=== PATIENT | female | born 1935 | race Caucasian/White ===

== ENCOUNTER 2017-08-21 18:54 | Inpatient (IN) ==
--- NOTE | 2017-08-21 19:07 | Emergency Department Note ---
Disposition Clinical Impression: NSTEMI (non-ST elevated myocardial infarction) Disposition: Admitted As Inpatient Condition: Fair General Adult HPI - General Chief complaint: ED Chest Pain Stated complaint: chest pain Source: patient, EMS Limitations: no limitations Nursing Notes Reviewed: Yes Vital Signs Reviewed: Yes - History of Present Illness HPI Narrative: 81-year-old female presents to the emergency department via EMS after concern for patient having altered mental status at home and complaining of chest pain. The patient has had myocardial infarctions in the past. Daughter at bedside, states, that the patient does not seem to be her normal mental state. Her last known well was over 3 hours ago. Pt Subjective Complaint: chest pain Onset (ago): unknown Location: chest Radiation: non-radiation Pain Severity: mild Pain Scale: 4 Quality: aching Consistency: constant Improves with: nothing Worsens with: nothing Associated symptoms: Reports: confusion Treatments Prior to Arrival: none - Related Data Home Medications Medication Instructions Recorded Confirmed Aspirin [Lo-Dose Aspirin EC] 81 mg PO DAILY 05/23/17 08/21/17 Clopidogrel [Plavix] 75 mg PO DAILY 05/23/17 08/21/17 Furosemide [Lasix] 40 mg PO DAILY 05/23/17 08/21/17 HYDROcodone/Acet 10/325 mg [[place] 1 tab PO BID PRN 05/23/17 08/21/17 10-325 mg] Linagliptin [Tradjenta] 5 mg PO DAILY 05/23/17 08/21/17 Lisinopril [Zestril] 20 mg PO DAILY 05/23/17 08/21/17 Simvastatin [Zocor] 20 mg PO HS 05/23/17 08/21/17 Cholecalciferol (Vitamin D3) 5,000 unit PO DAILY 08/21/17 08/21/17 [Vitamin D3] Ferrous Sulfate 325 mg PO DAILY 08/21/17 08/21/17 Previous Rx's Medication Instructions Recorded Amlodipine Besylate 10 mg PO DAILY #30 tablet 05/25/17 Allergies Allergy/AdvReac Type Severity Reaction Status Date / Time No Known Allergies Allergy Verified 02/25/17 16:14 Limitations: ROS unobtainable due to patients medical condition (confusion ) Constitutional: Denies: fever Cardiovascular: Reports: chest pain. Denies: palpitations Respiratory: Denies: cough, dyspnea Gastrointestinal: Denies: nausea, vomiting Past Medical History - Past Medical History Attestation: Yes The following information was validated with the patient. Medical history: Reports: non-contributory, arthritis, CHF, diabetes, hypertension, myocardial infarction Surgical history: Reports: angioplasty/stent Psychiatric history: Reports: no psych history - Social History Smoking Status: Former smoker Smokeless Tobacco Status: No Alcohol use: Reports: none Drug use: Reports: none Physical Exam CONSTITUTIONAL: Alert and oriented X3, well-nourished, well appearing, in no apparent distress, HEAD: Normocephalic; atraumatic. EYES: PERRL, no scleral icterus. NOSE: The nose is normal in appearance without rhinorrhea RESP: Normal chest excursion with respiration; breath sounds clear and equal bilaterally; no wheezes, rhonchi, or rales CARD: Regular rhythm, without murmurs, rub or gallop ABD: Non-distended; non-tender, soft,without rigidity, rebound or guarding SKIN: Normal for age and race; warm and dry; no apparent lesions Neuro: GCS 15, NIH 0, cranial nerves II through XII grossly intact, sensation intact in the upper and lower cells bilaterally, no pronator drift, normal finger to nose, strength 5 out of 5 in the upper and lower shoulders bilaterally - General Limitations: no limitations General appearance: alert, in no apparent distress - Head Head exam: atraumatic, normocephalic - Eye Eye exam: Present: normal appearance - ENT ENT exam: normal exam, normal oropharynx - Neck Neck exam: Present: normal inspection, full ROM - Chest Chest inspection: Present: tenderness - Respiratory Respiratory exam: Present: normal lung sounds bilaterally. Absent: respiratory distress - Cardiovascular Cardiovascular exam: Present: regular rate - Abdominal Exam Abdominal exam: Present: soft, Non-Tender - Extremities Exam Extremities exam: Present: normal inspection - Back Exam Back exam: Present: normal inspection - Neurological Exam Neurological exam: Present: alert. Absent: motor sensory deficit - Psychiatric Psychiatric exam: Present: normal affect, normal mood - Skin Skin exam: Present: warm, dry Course Vital Signs Temperature 98.6 F 08/21/17 18:55 Pulse Rate 75 08/21/17 18:55 Respiratory Rate 18 08/21/17 18:55 Blood Pressure 186/84 08/21/17 18:55 O2 Sat by Pulse Oximetry 99 08/21/17 18:55 Temperature 97.5 F L 08/21/17 22:37 Pulse Rate 61 08/21/17 22:37 Respiratory Rate 18 08/21/17 22:40 Blood Pressure 123/58 08/21/17 22:40 O2 Sat by Pulse Oximetry 95 08/21/17 22:37 Oxygen Delivery Oxygen Delivery Room Air Medical Decision Making - MDM Narrative Medical decision making narrative: 81-year-old female presents emergency Department with altered mental status and 3 out of 10 chest pain. This is mainly concerning for hemorrhagic stroke, versus delirium. Patient had an NIH of 0, and we do not call stroke protocol. We did obtain a CT of the head which was within normal limits and did not reveal any intracranial abnormality. Chest x-ray did not reveal any acute process. Echocardiogram did not reveal any ischemic ST changes. Troponin, however was elevated at 0.21. Patient was given aspirin here in the emergency department as well as sublingual nitroglycerin. Patient's chest pain and was treated 3 of 10 responded completely to nitroglycerin. Patient was started on low-dose heparin via ACS protocol. I spoke to the senior supply chain analyst on the phone and agreed with the plan. Patient's urinalysis is pending. Chest X-Ray 08/21/17 19:06 IMPRESSION: No acute cardiopulmonary disease. D/ / Noe Claros MD / Noe Claros MD Interpreting Provider: Noe Claros MD Head CT 08/21/17 19:06 IMPRESSION: No acute intracranial abnormality. D/ / Nika Horvath Cha, MD / Nika Horvath Cha, MD Interpreting Provider: Nika Horvath Cha, MD Vital Signs Temperature 98.6 F 08/21/17 18:55 Pulse Rate 75 08/21/17 18:55 Respiratory Rate 18 08/21/17 18:55 Blood Pressure 186/84 08/21/17 18:55 O2 Sat by Pulse Oximetry 99 08/21/17 18:55 Temperature 97.5 F L 08/21/17 22:37 Pulse Rate 61 08/21/17 22:37 Respiratory Rate 18 08/21/17 22:40 Blood Pressure 123/58 08/21/17 22:40 O2 Sat by Pulse Oximetry 95 08/21/17 22:37 Oxygen Delivery Oxygen Delivery Room Air - Lab Data Result diagrams: 08/21/17 20:09 08/21/17 20:09 Lab Results 08/21/17 08/21/17 08/21/17 Range/Units 20:09 20:09 20:09 WBC 10.3 (4.3-11.1) K/mcL RBC 3.86 (3.82-4.97) M/mcL Hgb 10.7 L (11.5-15.4) g/dL Hct 34.9 L (35.3-44.9) % MCV 90.4 (83.0-100.0) fL MCH 27.7 L (28.0-33.3) pg MCHC 30.7 L (31.6-35.5) g/dL RDW 13.3 (11.5-14.5) % Plt Count 213 (140-400) K/mcL MPV 10.7 (9.4-12.4) fL Immature Gran % 0.4 (0-4) % Seg Neutrophils % 73.5 % Lymphocytes % 17.0 % Monocytes % 7.1 % Eosinophils % 1.3 % Basophils % 0.7 % Neutrophils # 7.6 (1.6-8.9) K/mcL Lymphocytes # 1.8 (0.6-4.6) K/mcL Monocytes # 0.7 (0.0-1.3) K/mcL Eosinophils # 0.1 (0.0-0.6) K/mcL Basophils # 0.1 (0.0-0.2) K/mcL PT 11.2 (9.4-12.1) Seconds INR 1.0 APTT 33.4 (26.0-36.0) Seconds Sodium (136-145) mEq/L Potassium (3.5-4.5) mEq/L Chloride (98-109) mEq/L Carbon Dioxide (19-29) mEq/L BUN (7-20) mg/dL Creatinine (0.57-1.11) mg/dL Est GFR ( Amer) (> 60) Est GFR (Non-Af Amer) (> 60) BUN/Creatinine Ratio (6-26) Glucose (70-99) mg/dL Calculated Osmolality (280-300) Calcium (8.6-10.8) mg/dL Total Bilirubin (0.2-1.2) mg/dL Direct Bilirubin (0.0-0.5) mg/dL Indirect Bilirubin (0.0-1.2) mg/dL AST (5-34) Units/L ALT (0-55) Units/L Alkaline Phosphatase (38-126) Units/L Ammonia 19 (18-72) mcmol/L Troponin I (0-0.03) ng/mL Serum Total Protein (6.0-8.3) g/dL Albumin (3.5-5.0) g/dL Globulin (2.4-3.5) g/dL Albumin/Globulin Ratio (1.1-2.2) TSH (0.350-4.840) mcIU/mL Ethyl Alcohol (0-10) mg/dL 08/21/17 08/21/17 Range/Units 20:09 20:09 WBC (4.3-11.1) K/mcL RBC (3.82-4.97) M/mcL Hgb (11.5-15.4) g/dL Hct (35.3-44.9) % MCV (83.0-100.0) fL MCH (28.0-33.3) pg MCHC (31.6-35.5) g/dL RDW (11.5-14.5) % Plt Count (140-400) K/mcL MPV (9.4-12.4) fL Immature Gran % (0-4) % Seg Neutrophils % % Lymphocytes % % Monocytes % % Eosinophils % % Basophils % % Neutrophils # (1.6-8.9) K/mcL Lymphocytes # (0.6-4.6) K/mcL Monocytes # (0.0-1.3) K/mcL Eosinophils # (0.0-0.6) K/mcL Basophils # (0.0-0.2) K/mcL PT (9.4-12.1) Seconds INR APTT (26.0-36.0) Seconds Sodium 138 (136-145) mEq/L Potassium 4.6 H (3.5-4.5) mEq/L Chloride 104 (98-109) mEq/L Carbon Dioxide 19 (19-29) mEq/L BUN 30 H (7-20) mg/dL Creatinine 1.31 H (0.57-1.11) mg/dL Est GFR ( Amer) 47 L (> 60) Est GFR (Non-Af Amer) 39 L (> 60) BUN/Creatinine Ratio 23 (6-26) Glucose 130 H (70-99) mg/dL Calculated Osmolality 294 (280-300) Calcium 9.3 (8.6-10.8) mg/dL Total Bilirubin 1.0 (0.2-1.2) mg/dL Direct Bilirubin 0.3 (0.0-0.5) mg/dL Indirect Bilirubin 0.7 (0.0-1.2) mg/dL AST 19 (5-34) Units/L ALT 9 (0-55) Units/L Alkaline Phosphatase 87 (38-126) Units/L Ammonia (18-72) mcmol/L Troponin I 0.21 H* (0-0.03) ng/mL Serum Total Protein 7.3 (6.0-8.3) g/dL Albumin 3.6 (3.5-5.0) g/dL Globulin 3.7 H (2.4-3.5) g/dL Albumin/Globulin Ratio 1.0 L (1.1-2.2) TSH 1.583 (0.350-4.840) mcIU/mL Ethyl Alcohol < 10 (0-10) mg/dL - EKG Data EKG #1 EKG attestation: Yes I reviewed and interpreted this EKG. EKG results narrative: 19:03 Particular rate 74 bpm, ID interval 230, Q latter day 94, QT 382 ms, QTC 400 ms , normal axis. Sinus rhythm with first-degree AV block. Ventricular rate of 74 bpm. There are no ischemic ST changes noted on this electrocardiogram. Attestation Statement - Attestation Attestation: I examined this patient and my medical decision-making was reviewed with the Resident Physician. I agree with the documented findings, disposition and treatment plan as described except to the extent set forth below. 81-year-old female presents ED because of chest pain. She is a very poor historian and unable to describe onset, character or associated symptoms. The pain apparently began sometime today which time her daughter called the ambulance. No syncope. No diaphoresis. No dyspnea. She is also presenting with some mild confusion. No reported fever. Pleasant, elderly female in no apparent distress. She is talkative Morbidly obese Neck is supple with no JVD. Chest clear to auscultation bilateral. Tenderness to palpation along the parasternal margins bilaterally. No palpable crepitus. Lungs are clear to auscultation bilaterally. Abdomen soft nondistended nontender. Extremities with trace bilateral edema. EKG without acute changes. Have an Elevated Troponin and Will Be Admitted for Further Workup. The high probability of a clinically significant, sudden or life threatening deterioration of the [cardiopulmonary] system(s) required my full and direct attention, intervention and personal management. The aggregate critical care time was [15] minutes. This time is in addition to time spent performing reported procedures but includes the following: [x] Data Review and interpretation [x] Patient assessment and monitoring of vital signs [x] Documentation [x] Medication orders and management
[2017-08-21 20:24] LABS: Basophils # 0.1 K/mcL (0.0-0.2); Basophils % 0.7 %; Eosinophils # 0.1 K/mcL (0.0-0.6); Eosinophils % 1.3 %; Hematocrit 34.9 % (35.3-44.9); Hemoglobin 10.7 g/dL (11.5-15.4); Immature Granulocytes % 0.4 % (0-4); Lymphocytes # 1.8 K/mcL (0.6-4.6); Mean Corpuscular HGB Conc 30.7 g/dL (31.6-35.5); Mean Corpuscular Hemoglobin 27.7 pg (28.0-33.3); Mean Corpuscular Volume 90.4 fL (83.0-100.0); Mean Platelet Volume 10.7 fL (9.4-12.4); Monocytes # 0.7 K/mcL (0.0-1.3); Monocytes % 7.1 %; Neutrophils # 7.6 K/mcL (1.6-8.9); Platelet Count 213 K/mcL (140-400); Red Blood Count 3.86 M/mcL (3.82-4.97); Red Cell Distribution Width 13.3 % (11.5-14.5); Segmented Neutrophils % 73.5 %
[2017-08-21 20:38] LABS: Alanine Aminotransferase 9 Units/L (0-55); Albumin 3.6 g/dL (3.5-5.0); Alkaline Phosphatase 87 Units/L (38-126); Aspartate Amino Transferase 19 Units/L (5-34); BUN/Creatinine Ratio 23 (6-26); Bilirubin,Direct 0.3 mg/dL (0.0-0.5); Bilirubin,Indirect 0.7 mg/dL (0.0-1.2); Blood Urea Nitrogen 30 mg/dL (7-20); Calcium 9.3 mg/dL (8.6-10.8); Carbon Dioxide 19 mEq/L (19-29); Chloride 104 mEq/L (98-109); Ethanol < 10 mg/dL (0-10); Globulin 3.7 g/dL (2.4-3.5); Glucose 130 mg/dL (70-99); Osmolality,Calculated 294 (280-300); Potassium 4.6 mEq/L (3.5-4.5); Sodium 138 mEq/L (136-145); Total Protein 7.3 g/dL (6.0-8.3); eGFR For African Americans 47 (> 60); eGFR For Non-African Americans 39 (> 60)
[2017-08-21 20:51] LABS: Activated Partial Thrombo Time 33.4 Seconds (26.0-36.0)
[2017-08-21 20:59] LABS: Thyroid Stimulating Hormone 1.583 mcIU/mL (0.350-4.840)
[2017-08-21] MEDS ORDERED: Nitroglycerin 0.4 MG TAB.SUBL SL PRN (21:04)
[2017-08-21] MEDS ORDERED: Aspirin 81 MG TAB.CHEW PO ONE (21:05)
[2017-08-21] MEDS ORDERED: *HR* Heparin 5,000 UNIT/ML VIAL IVP PRN ×2 (21:06)
[2017-08-21] MEDS ORDERED: *HR* Heparin 5,000 UNIT/ML VIAL IVP ONE (21:06)
[2017-08-21 21:18] LABS: Prothrombin Time 11.2 Seconds (9.4-12.1)
[2017-08-21] MEDS: Heparin 25,000 UNIT/500 ML D5W 25,000 UNIT/500 ML MLS IVC SCH (21:52)
--- NOTE | 2017-08-22 04:30 | Internal Med History&Physical ---
Date of Encounter: 08/22/17 Time of Encounter: 04:28 Assessment and Plan (1) NSTEMI (non-ST elevated myocardial infarction) Current visit: Yes Status: Acute Upon is elevated. She is on IV heparin and nitroglycerin when necessary. Low- dose aspirin is started. She cannot take beta aldair because her heart rate is very low. Cardiology to see her. (2) Diabetes mellitus Current visit: Yes Status: Chronic Accu-Chek 4 times a day with sliding scale coverage Qualifiers: Diabetes mellitus type: type 2 Diabetes mellitus complication status: with kidney complications Diabetes mellitus complication detail: with chronic kidney disease Diabetes mellitus terminal carman insulin use: unspecified long-term insulin use status Chronic kidney disease stage: stage 3 (moderate) Qualified Code(s): E11.22 - Type 2 diabetes mellitus with diabetic chronic kidney disease; N18.3 - Chronic kidney disease, stage 3 (moderate); N18.3 - Chronic kidney disease, stage 3 (moderate) (3) Chronic kidney disease, stage 3 Current visit: No Status: Suspected Watch renal function closely Internal Medicine - H&P: HPI Chief complaint: Chest pain Admitted From: Home Plans for Post Hospital Care: Home History of present illness: Ms. Valencia is a 81 year old female is entered with chest pain and confusion. By the time I saw her her chest pain and confusion both have resolved. Apparently troponin are positive. She had prior history of coronary artery disease and had stents placed but she can remember to go. She does not have any syncope or lightheadedness or shortness of breath palpitations abdominal pain nausea vomiting diarrhea dysuria urgency frequency hematuria and hematochezia and hematemesis melena or any other symptoms. Chest pain was substernal radiating to her left shoulder and neck but it has resolved now. She could not tell me if nitroglycerin helped her Past Med Surg Social Fam HX - Past Medical History Medical history: non-contributory, arthritis, CHF, diabetes, hypertension, myocardial infarction Psychiatric history: no psych history - Past Surgical History Surgical History: angioplasty/stent - Social History Smoking Status: Former smoker Smokeless Tobacco Status: No Alcohol use: none Drug use: none - Family History Father Family Member Ethnicity: Non- Living Status: Hx Family Cardiac Disorders: Yes Sister Family Member Ethnicity: Non- Living Status: Hx Family Cancer: Yes (UNKnown type) Internal Medicine - H&P: Meds Aspirin [Lo-Dose Aspirin EC] 81 mg PO DAILY 05/23/17 [History] Clopidogrel [Plavix] 75 mg PO DAILY 05/23/17 [History] Furosemide [Lasix] 40 mg PO DAILY 05/23/17 [History] HYDROcodone/Acet 10/325 mg [[place] 10-325 mg] 1 tab PO BID PRN 05/23/17 [History] Linagliptin [Tradjenta] 5 mg PO DAILY 05/23/17 [History] Lisinopril [Zestril] 20 mg PO DAILY 05/23/17 [History] Simvastatin [Zocor] 20 mg PO HS 05/23/17 [History] Amlodipine Besylate 10 mg PO DAILY #30 tablet 05/25/17 [Rx] Cholecalciferol (Vitamin D3) [Vitamin D3] 5,000 unit PO DAILY 08/21/17 [History] Ferrous Sulfate 325 mg PO DAILY 08/21/17 [History] 3 Allergy/AdvReac Type Severity Reaction Status Date / Time No Known Allergies Allergy Verified 02/25/17 16:14 All Systems PM: A 10-system review of systems was performed and is negative for pertinent findings except as documented above in the HPI. - Constitutional Constitutional: no chills, no fever(s), no night sweats - EENT Eyes: no change in vision, no discharge, no pain, no photophobia Ears: no ear discharge, no ear pain, no tinnitus Nose, mouth and throat: no dysphagia, no nasal discharge, no neck pain, no sore throat - Cardiovascular Cardiovascular ROS IM: no chest pain, no diaphoresis, no dyspnea, no lightheadedness, no palpitations, no syncope - Respiratory Respiratory: no cough, no dyspnea, no wheezing, no excessive phlegm production - Gastrointestinal Gastrointestinal: no abdominal pain, no diarrhea, no hematemesis, no hematochezia, no melena, no nausea, no vomiting - Genitourinary Genitourinary: no change in urinary stream, no dysuria, no flank pain, no hematuria - Musculoskeletal Musculoskeletal ROS IM: no numbness, no tingling - Integumentary Integumentary IM: no rash, no unusual bruising - Neurological Neurological ROS: no confusion, no convulsions, no focal weakness, no numbness, no tingling, no tremor(s) - Hematologic/Lymphatic Hematologic/Lymphatic: no easy bruising - Constitutional Vitals: Temp Pulse Resp BP Pulse Ox 97.7 F 60 16 143/78 96 08/22/17 03:31 08/22/17 03:31 08/22/17 03:31 08/22/17 03:31 08/22/17 03:31 - Head Head exam: Present: atraumatic, normocephalic - Eye Eye exam: Present: PERRL, conjuntiva pink, sclera anicteric Pupils: Present: PERRL - Neck Neck exam general surgery: Present: supple, trachea midline. Absent: lymphadenopathy - Respiratory Respiratory exam: Present: CTAB. Absent: accessory muscle use, rales, rhonchi, wheezes - Cardiovascular Cardiovascular exam: Present: RRR, +S1, +S2. Absent: diastolic murmur, gallop, rubs, systolic murmur - GI/Abdominal GI/Abdominal exam: Present: normal bowel sounds, soft, no peritoneal signs. Absent: distended, tenderness - Extremities Exam Extremities exam: Present: warm, radial pulses palpable and symmetrical. Absent : calf tenderness, cyanotic, pedal edema - Neurological Exam Neurological exam: Present: CN II-XII intact, oriented X3, no focal deficits. Absent: pronater drift, facial droop, speech deficit - Skin Skin exam: Present: dry, intact Internal Med - H&P Results - Labs CBC & Chem 7: 08/21/17 20:09 08/21/17 20:09 Labs: Cardiac Enzymes 08/22/17 Range/Units 02:33 Troponin I 0.26 H* (0-0.03) ng/mL
[2017-08-22] MEDS ORDERED: *HR* HYDROcodone/Acet 10/325 mg TABLET PO PRN ×2 (04:31→11:35)
[2017-08-22] MEDS ORDERED: *HR* Dextrose 50 % in Water (Syg) 50 ML SYRINGE IVP PRN (04:32)
[2017-08-22] MEDS ORDERED: D5% in Water 1,000 ML IVC PRN (04:32)
[2017-08-22] MEDS ORDERED: Dextrose Gel 15 GM PO PRN ×2 (04:32)
[2017-08-22] MEDS ORDERED: Naloxone 0.4 MG/ML INJ IVP PRN (04:33)
[2017-08-22 07:57] LABS: Bilirubin,Urine Negative (Negative); Blood,Urine Negative (Negative); Clarity,Urine Clear (Clear); Color,Urine Yellow (Yellow); Glucose,Urine (UA) Normal (Normal); Ketones,Urine Negative (Negative); Leukocyte Esterase,Urine Negative (Negative); Nitrite,Urine Negative (Negative); Protein,Urine Negative (Neg-Trace); Urobilinogen,Urine Normal (Normal)
[2017-08-22] MEDS: Aspirin Enteric Coated 81 MG Tablet PO SCH (08:51)
[2017-08-22] MEDS: Lisinopril 20 MG TABLET PO SCH (08:51)
[2017-08-22] MEDS: Insulin LISPRO 300 UNITS/3 ML VIAL SQ SCH ×5 (08:51→16:43)
[2017-08-22] MEDS: amLODIPine 5 MG TABLET PO SCH (08:51)
[2017-08-22] MEDS: Cholecalciferol (D-3) 1,000 UNIT TABLET PO SCH (08:51)
[2017-08-22] MEDS: Furosemide 40 MG TABLET PO SCH (08:52)
--- NOTE | 2017-08-22 10:00 | Cardiology Consult Note ---
Addendum entered and electronically signed by Eduard Briseno CNP 08/22/17 11:47 : Discussed [facility] R/B/A again with patient and daughter who is now at bedside. EKG changes discussed. Patient agrees with [facility]. We will possibly do later today after 4 hours of NPO. Keep NPO. She is chest pain free. Addendum entered and electronically signed by Eduard Briseno CNP 08/22/17 11:00 : Dr. Decker brought EKG ordered today to our attention. There are new t wave inversions. Reviewed EKG findings with Dr. Elizabeth, concerning for ischemia in LAD territory. No ST elevation noted. Recommend [facility]. Will keep NPO after midnight. Original Note: <Eduard Briseno - Last Filed: 08/22/17 10:21> Date of Encounter: 08/22/17 Time of Encounter: 09:42 Assessment and Plan (1) NSTEMI (non-ST elevated myocardial infarction) Current Visit: Yes Status: Acute Troponin 0.21, 0.26. C/o chest pain just like previous MN 10 years ago. EKG ordered, not available for our view. EKG showed SR with no EKG changes per documentaion in ED. I discussed C R/B/A vs medical management. Patient prefers medical management unless she has recurrent symptoms. Check TTE. Asa, plavix, and statin. Add imdur. No bb due to bradycardia seen 2016. Heparin gtt for 24-48hrs. (2) CAD (coronary artery disease) Current Visit: No Status: Acute H/o remote PCI. Last MN 10 years ago. Stress test 05/2017 negative for ischemia. Continue medical management as described above. No bb due to bradycardia seen earlier this year. Tele shows avg HR 65 bpm. NSR with PAc. HR as low as 40 seen during nocturnal hours. Qualifiers: Coronary Disease-Associated Artery/Lesion type: hoh artery [place] vs. transplanted heart: hoh heart Associated angina: angina presence unspecified Qualified Code(s): I25.10 - Atherosclerotic heart disease of hoh coronary artery without angina pectoris Discussion w patient/family: The assessment and plan as outlined above was discussed with the patient and/or family members who expressed understanding and agreement. All questions were answered. Thank you for involving us in the care of your patient. Please call with any questions. History of Present Illness Consult date: 08/22/17 Requesting physician: Diane Deutsch Consult reason: Chest pain/NSTEMI Chief complaint: Chest pain History of present illness: Ms. Valencia is a 81 year old female with a history of CAD s/p remote PCI, HTN , HLD, DM type II, bradycardia, and obesity presents with increasing chest pain and confusion from home. She reports lying in bed when her chest discomfort started. The pain was midsternal radiating to her shoulders. The pain was associated with dizziness. She rates it a 10/10 chest pressure on the pain scale. She took a hydrocodone. The pain resolved after about an hour. Her daughter called EMS. Daughter reported patient was not acting right and appeared confused. Confusion has resolved. Patient reports pain is like previous MN 10 years ago. She had intermittent chest pain but not as severe. Past Med Surg Social Fam HX - Past Medical History Attestation: Yes The following information was validated with the patient. Medical history: non-contributory, arthritis, CHF, diabetes, hypertension, myocardial infarction Psychiatric history: no psych history - Past Surgical History Surgical History: angioplasty/stent - Social History Smoking Status: Former smoker Smokeless Tobacco Status: No Alcohol use: none Drug use: none - Family History Father Family Member Ethnicity: Non- Living Status: Hx Family Cardiac Disorders: Yes Sister Family Member Ethnicity: Non- Living Status: Hx Family Cancer: Yes (UNKnown type) Medications and Allergies Aspirin [Lo-Dose Aspirin EC] 81 mg PO DAILY 05/23/17 [History] Clopidogrel [Plavix] 75 mg PO DAILY 05/23/17 [History] Furosemide [Lasix] 40 mg PO DAILY 05/23/17 [History] HYDROcodone/Acet 10/325 mg [[place] 10-325 mg] 1 tab PO BID PRN 05/23/17 [History] Linagliptin [Tradjenta] 5 mg PO DAILY 05/23/17 [History] Lisinopril [Zestril] 20 mg PO DAILY 05/23/17 [History] Simvastatin [Zocor] 20 mg PO HS 05/23/17 [History] Amlodipine Besylate 10 mg PO DAILY #30 tablet 05/25/17 [Rx] Cholecalciferol (Vitamin D3) [Vitamin D3] 5,000 unit PO DAILY 08/21/17 [History] Ferrous Sulfate 325 mg PO DAILY 08/21/17 [History] 3 Allergy/AdvReac Type Severity Reaction Status Date / Time No Known Allergies Allergy Verified 02/25/17 16:14 All Systems Review: A 10-system review of systems was performed and is negative for pertinent findings except as documented above in the HPI. Physical Examination Vital Signs, Last 4 Hours Temp Pulse Resp BP Pulse Ox 08/22/17 08:59 96 08/22/17 08:33 97.8 F 59 18 153/72 96 General: Conversant, No Apparent Distress HEENT: Atraumatic, Normocephaly, Mucus Membranes Moist Neck: No JVD, Normal carotid pulses Cardiac: Reg Rate and Rhythm, Normal S1 and S2, No Murmur Lungs: Normal Breath Sounds, No Wheeze, Rales, Rhonchi Neuro: Alert and responsive, No focal deficits noted Abdomen: Soft, Non-Tender Skin: No rashes noted on visualized skin Musculoskeletal: No Chest Wall Tenderness Extremities: No Clubbing, No Cyanosis, No Edema, Normal Pulses Results 08/21/17 20:09 08/21/17 20:09 - Imaging and Cardiology Stress Test: report reviewed - EKG Interpretation EKG results cardiology: personally reviewed Consult Discharge Plan - Plan Referrals: Nav Urias DO [Primary Care Provider] - <Shanon Elizabeth - Last Filed: 08/22/17 12:17> Date of Encounter: 08/22/17 - Attending Attestation I have personally performed a face to face evaluation on this patient. I have reviewed and agree with the care plan. History and Exam by me shows: 81 YOF with h/o CAD presents after recent negative stress test with recurrent CP. Has a h/o of PCI in the past with mildly elevated troponins and new changes on EKG suggestive of LAD ischemia. C today and continue ACS meds. Assessment and Plan Discussion w patient/family: The assessment and plan as outlined above was discussed with the patient and/or family members who expressed understanding and agreement. All questions were answered. Thank you for involving us in the care of your patient. Please call with any questions. History of Present Illness History of present illness: Ms. Valencia is a 81 year old female All Systems Review: A 10-system review of systems was performed and is negative for pertinent findings except as documented above in the HPI. Physical Examination Vital Signs, Last 4 Hours Temp Pulse Resp BP Pulse Ox 08/22/17 11:17 97.8 F 85 17 103/61 90 08/22/17 08:59 96 08/22/17 08:33 97.8 F 59 18 153/72 96 Results 08/22/17 09:52 08/22/17 09:52 Lab Results 08/22/17 08/22/17 08/22/17 09:52 09:52 09:52 WBC 8.5 Hgb 10.5 L Hct 33.3 L Plt Count 205 APTT 66.4 H Sodium 139 Potassium 4.2 Chloride 105 Carbon Dioxide 27 BUN 25 H Creatinine 1.35 H Glucose 220 H Calcium 9.7
[2017-08-22 10:20] LABS: Basophils # 0.1 K/mcL (0.0-0.2); Basophils % 0.7 %; Eosinophils # 0.1 K/mcL (0.0-0.6); Eosinophils % 1.6 %; Hematocrit 33.3 % (35.3-44.9); Hemoglobin 10.5 g/dL (11.5-15.4); Immature Granulocytes % 0.4 % (0-4); Lymphocytes # 2.2 K/mcL (0.6-4.6); Lymphocytes % 26.2 %; Mean Corpuscular HGB Conc 31.5 g/dL (31.6-35.5); Mean Corpuscular Hemoglobin 28.2 pg (28.0-33.3); Mean Corpuscular Volume 89.5 fL (83.0-100.0); Mean Platelet Volume 10.9 fL (9.4-12.4); Monocytes # 0.5 K/mcL (0.0-1.3); Monocytes % 5.5 %; Neutrophils # 5.6 K/mcL (1.6-8.9); Platelet Count 205 K/mcL (140-400); Red Blood Count 3.72 M/mcL (3.82-4.97); Red Cell Distribution Width 13.2 % (11.5-14.5); Segmented Neutrophils % 65.6 %
[2017-08-22 10:30] LABS: Calcium 9.7 mg/dL (8.6-10.8); Potassium 4.2 mEq/L (3.5-4.5)
--- NOTE | 2017-08-22 10:51 | Event Note ---
<Kamran Hunt - Last Filed: 08/22/17 10:38> Date of Encounter: 08/22/17 Time of Encounter: 10:38 Patient was admitted early this morning. She is seen and examined at bedside. She is chest pain-free at this time. She denies shortness of breath, nausea, vomiting. Physical exam: Gen: Alert and oriented 3 Heart: Regular rate and rhythm, no murmurs, rubs, gallops Lungs: Clear to auscultation bilaterally, no rales, rhonchi, wheezes Abdomen: Soft, nontender, nondistended Assessment and plan: NSTEMI - troponin 0.21, 0.26, repeat pending. Patient is currently on a heparin drip. On aspirin, statin. Not on a beta aldair due to history of bradycardia. EKG shows new T-wave inversion. Cardiology has been consulted. CKD stage III - creatinine appears to be baseline. Good Urine output. Continue to monitor. Type 2 diabetes - Blood sugars elevated this morning. Hold home antihyperglycemic agents. Will add prandial insulin at low dose given that the patient is insulin naive. Continue sliding scale coverage. Adjust based on insulin usage and blood sugar readings. Most recent A1c in May was 5.8, recheck in the morning. <Tigre Henderson - Last Filed: 08/23/17 08:00> Date of Encounter: 08/22/17 I conducted a face to face diagnostic evaluation of this patient and my medical decision-making was reviewed with the Resident Physician, Dr. Kamran Hunt. I agree with the documented findings, disposition and treatment plan.
[2017-08-22] MEDS ORDERED: Acetaminophen 325 MG TABLET PO PRN (11:34)
[2017-08-22] MEDS ORDERED: Heparin 1,000 UNITS/500 mL NS 500 ML ONE (14:38)
[2017-08-22] MEDS ORDERED: *HR* Heparin 10,000 UNIT/10 ML VIAL ONE (14:38)
[2017-08-22] MEDS ORDERED: 0.9 % Sodium Chloride 1,000 ML ONE ×2 (14:38→15:35)
[2017-08-22] MEDS ORDERED: Nitroglycerin 1,000 MCG/10 ML VIAL IV ONE (14:38)
[2017-08-22] MEDS ORDERED: *HR* Midazolam HCl 2 MG/2 ML VIAL ONE (15:38)
--- NOTE | 2017-08-22 16:17 | Pre-Sedation Evaluation ---
Pre-sedation evaluation - Pre-sedation checklist Date of procedure: 08/22/17 Procedure: left heart cath Recent Vitals: Last Vital Signs Temp 97.8 F 08/22/17 11:17 Pulse 85 08/22/17 11:17 Resp 17 08/22/17 11:17 BP 103/61 08/22/17 11:17 Pulse Ox 90 08/22/17 11:17 H&P (including ROS) documented in medical record: Yes Previous reaction to sedatives/anesthetics: No Dietary Status: Clear fluids after Midnight Dentition: No loose teeth or bridges Possible difficult airway: No ASA Classification *see protocol: CLASS III-Severe systemic disease Plan of Care: Pt appropriate candidate for procedure/moderate/conscious sedation , Risks/benefits of procedure/sedation discussed w/ patient/family, If not NPO; Risk of intake outweiged by necessity to perform procedure
[2017-08-22] MEDS: 0.9 % Sodium Chloride 1,000 ML IVC SCH (16:48)
--- NOTE | 2017-08-22 19:22 | Electrocardiograph Report ---
[address] [place] [address] Test Date: 2017-08-21 Pat Name: Crystal Valencia Department: 104 Room: 2A26 Gender: F Night Shift: : 1935 Requested By: Bharathi Englsih Order Number: [id number] Reading MD: David Rico DO Measurements Intervals [place] Rate: 74 P: -38 [place]: 230 QRS: 86 QRSD: 94 T: 26 QT: 382 QTc: 409 Interpretive Statements SINUS RHYTHM WITH FIRST DEGREE AV BLOCK POSSIBLE LATERAL MYOCARDIAL INFARCTION [30 ms Q WAVE IN I/aVL/V5/V6], OF INDETERMINATE AGE Electronically Signed On 08-22-2017 19:20:48 EST by David Rico DO
[2017-08-22] MEDS: Isosorbide MONOnitrate (24 HR) 30 MG TAB.ER.24H PO SCH (20:30)
[2017-08-22] MEDS ORDERED: Insulin LISPRO 300 UNITS/3 ML VIAL SQ SCH (21:00)
[2017-08-23 06:04] LABS: Basophils % 0.4 %; Eosinophils # 0.3 K/mcL (0.0-0.6); Eosinophils % 2.8 %; Hematocrit 30.4 % (35.3-44.9); Hemoglobin 9.6 g/dL (11.5-15.4); Immature Granulocytes % 0.4 % (0-4); Lymphocytes # 2.8 K/mcL (0.6-4.6); Lymphocytes % 30.6 %; Mean Corpuscular HGB Conc 31.6 g/dL (31.6-35.5); Mean Corpuscular Hemoglobin 28.1 pg (28.0-33.3); Mean Corpuscular Volume 88.9 fL (83.0-100.0); Mean Platelet Volume 10.8 fL (9.4-12.4); Monocytes # 0.8 K/mcL (0.0-1.3); Monocytes % 9.3 %; Neutrophils # 5.1 K/mcL (1.6-8.9); Platelet Count 210 K/mcL (140-400); Red Blood Count 3.42 M/mcL (3.82-4.97); Red Cell Distribution Width 13.3 % (11.5-14.5); Segmented Neutrophils % 56.5 %
[2017-08-23 06:09] LABS: Hemoglobin A1C 5.9 %
[2017-08-23 06:23] LABS: Calcium 8.7 mg/dL (8.6-10.8); Magnesium 1.4 mg/dL (1.6-2.6); Potassium 4.3 mEq/L (3.5-4.5)
--- NOTE | 2017-08-23 07:51 | Event Note ---
Date of Encounter: 08/23/17 Time of Encounter: 07:45 - Cardiology Event Note [facility] report reviewed with 80% distal RCA diffusely diseased, no intervention performed. Otherwise, moderate non-obstructive CAD. TTE with LVEf 65%. Cardiology will sign off and will follow in outpatient setting. Follow up set.
[2017-08-23] MEDS: Isosorbide MONOnitrate (24 HR) 30 MG TAB.ER.24H PO SCH (08:32)
[2017-08-23] MEDS: Cholecalciferol (D-3) 1,000 UNIT TABLET PO SCH (08:32)
[2017-08-23] MEDS: amLODIPine 5 MG TABLET PO SCH (08:32)
[2017-08-23] MEDS: Furosemide 40 MG TABLET PO SCH (08:32)
[2017-08-23] MEDS: Aspirin Enteric Coated 81 MG Tablet PO SCH (08:32)
[2017-08-23] MEDS: Lisinopril 20 MG TABLET PO SCH (08:32)
[2017-08-23] MEDS: Insulin LISPRO 300 UNITS/3 ML VIAL SQ SCH ×2 (08:33→08:34)
[2017-08-23] MEDS: Heparin 25,000 UNIT/500 ML D5W 25,000 UNIT/500 ML MLS IVC SCH (08:42)
[2017-08-23] MEDS: 0.9 % Sodium Chloride 1,000 ML IVC SCH (08:43)
--- NOTE | 2017-08-23 09:06 | Discharge Summary ---
Addendum entered and electronically signed by Kamran Hunt DO 08/23/17 09:53: Will add Imdur 30 mg daily to the patient's medications. Original Note: <Kamran Hunt - Last Filed: 08/23/17 09:15> Date of Encounter: 08/23/17 Time of Encounter: 09:03 - Discharge Diagnosis (1) Chest pain Priority: Primary Status: Resolved Qualifiers: Chest pain type: other chest pain Qualified Code(s): R07.89 - Other chest pain; R07.8 - Other chest pain (2) CAD (coronary artery disease) Priority: Primary Status: Chronic Qualifiers: Coronary Disease-Associated Artery/Lesion type: wiyot artery [place] vs. transplanted heart: wiyot heart Associated angina: angina presence unspecified Qualified Code(s): I25.10 - Atherosclerotic heart disease of wiyot coronary artery without angina pectoris (3) Diabetes mellitus Priority: Secondary Status: Chronic Qualifiers: Diabetes mellitus type: type 2 Diabetes mellitus complication status: with kidney complications Diabetes mellitus complication detail: with chronic kidney disease Diabetes mellitus fci insulin use: unspecified fci insulin use status Chronic kidney disease stage: stage 3 (moderate) Qualified Code(s): E11.22 - Type 2 diabetes mellitus with diabetic chronic kidney disease; N18.3 - Chronic kidney disease, stage 3 (moderate); N18.3 - Chronic kidney disease, stage 3 (moderate) (4) Chronic kidney disease, stage 3 Priority: Secondary Status: Chronic (5) NSTEMI (non-ST elevated myocardial infarction) Priority: Secondary Status: Ruled-out - Discharge Medications Prescriptions: Isosorbide MONOnitrate (24 HR) [Imdur] 30 mg PO DAILY #30 tab.er.24h Home Medications: Aspirin [Lo-Dose Aspirin EC] 81 mg PO DAILY 05/23/17 [History] Clopidogrel [Plavix] 75 mg PO DAILY 05/23/17 [History] Furosemide [Lasix] 40 mg PO DAILY 05/23/17 [History] HYDROcodone/Acet 10/325 mg [[place] 10-325 mg] 1 tab PO BID PRN 05/23/17 [History] Linagliptin [Tradjenta] 5 mg PO DAILY 05/23/17 [History] Lisinopril [Zestril] 20 mg PO DAILY 05/23/17 [History] Simvastatin [Zocor] 20 mg PO HS 05/23/17 [History] Amlodipine Besylate 10 mg PO DAILY #30 tablet 05/25/17 [Rx] Cholecalciferol (Vitamin D3) [Vitamin D3] 5,000 unit PO DAILY 08/21/17 [History] Ferrous Sulfate 325 mg PO DAILY 08/21/17 [History] Isosorbide MONOnitrate (24 HR) [Imdur] 30 mg PO DAILY #30 tab.er.24h 08/23/17 [ Rx] Allergies/Adverse Reactions: 3 Allergy/AdvReac Type Severity Reaction Status Date / Time No Known Allergies Allergy Verified 02/25/17 16:14 Procedures/tests Complete & Pending: Procedures Performed prior 72 hours Category Date Time Status CL Cardiac Catheterization [CL] Routine Rn Gastroenterology 08/22/17 11:46 Completed EKG [ECG 12 lead ECG] [ECG] Stat Y 08/22/17 10:24 Completed EV limited echocardiogram Routine Y 08/22/17 10:26 Completed Date of admission: 08/22/17 04:33 Primary care physician: Nav Urias Consults: 08/23/17 07:57 Consult to Cardiac Rehabilitation-Phase1 [CONS] Routine Comment: Reason for Consult: NSTEMI Call Completed: No Discharging clinician: Kamran Hunt Anticipated date of discharge: 08/23/17 - Patient Status Disposition: Home, Self-Care Condition: Fair Functional capacity at discharge: independent ambulation Overall status at discharge: patient is back to baseline - Discharge Instructions Instructions: Bradycardia (DC), Dyspnea (GEN) Follow Up With: Saurabh Ramos DO [Resident] - 08/30/17 11:00 am (1 week) Arelis Villalta HISTORY CARD CLERK [Advanced Practice Nurse] - (3-4 weeks, Cardiology started process of making follow up. Office will call you with an appointment date and time ) Additional Instructions: Please follow up with your primary care physician in one week. Please resume your home medications. Please follow-up with cardiology as scheduled. Please return for any new or worsening symptoms. - Diet and Activity Activity: increase activity as tolerated Diet: diabetic diet, low salt diet Interval History: Patient seen and examined at bedside. Patient states that she feels good this morning. She denies any chest pain overnight. She denies shortness of breath, cough. She has been up walking around without difficulty. Hospital course: Ms. Valencia is a 81 year old female with history of coronary artery disease, type 2 diabetes who presented with chest pain. Her chest pain was substernal and exacerbated by activity. She stated this pain felt similar to her previous episodes of angina that required stent placement. EKG was performed and showed new T-wave inversions. She also had elevation in her troponin. She was placed on heparin drip for non-ST elevation [place]. Cardiology was consulted and the patient underwent left heart catheterization that showed nonobstructive coronary disease. Cardiology had signed off. The patient has been chest pain- free throughout her entire stay. The patient will be discharged home in stable condition. Of note the patient will not be discharged with a beta aldair due to her history of bradycardia. - Time Spent with Patient Total time spent providing and/or coordinating discharge services: Greater than 30 minutes - Constitutional Vitals: Temp Pulse Resp BP Pulse Ox 98.2 F 68 17 105/58 95 08/23/17 07:16 08/23/17 07:16 08/23/17 07:16 08/23/17 07:16 08/23/17 08:44 General appearance: Present: A&O X 3, pleasant, no acute distress - Respiratory Respiratory exam: Present: CTAB. Absent: rales, rhonchi, wheezes - Cardiovascular Cardiovascular exam: Present: RRR. Absent: gallop, rubs, systolic murmur - GI/Abdominal GI/Abdominal exam: Present: normal bowel sounds, soft. Absent: distended, tenderness - Extremities Exam Extremities exam: Present: warm. Absent: pedal edema, tenderness - Neurological Exam Neurological exam: Present: alert, CN II-XII intact, oriented X3, no focal deficits <Tigre Henderson - Last Filed: 08/23/17 18:28> Date of Encounter: 08/23/17 Procedures/tests Complete & Pending: Procedures Performed prior 72 hours Category Date Time Status CL Cardiac Catheterization [CL] Routine Rn Gastroenterology 08/22/17 11:46 Completed EKG [ECG 12 lead ECG] [ECG] Stat Y 08/22/17 10:24 Completed EV limited echocardiogram Routine Y 08/22/17 10:26 Completed Date of admission: 08/22/17 04:33 Primary care physician: Nav Urias Consults: 08/23/17 07:57 Consult to Cardiac Rehabilitation-Phase1 [CONS] Routine Comment: Reason for Consult: NSTEMI Call Completed: No Hospital course: Ms. Valencia is a 81 year old female - Time Spent with Patient Total time spent providing and/or coordinating discharge services: - Constitutional Vitals: Temp Pulse Resp BP Pulse Ox 98.2 F 68 17 105/58 95 08/23/17 07:16 08/23/17 07:16 08/23/17 07:16 08/23/17 07:16 08/23/17 08:44 - Attending Attestation I conducted a face to face diagnostic evaluation of this patient and my medical decision-making was reviewed with the Resident Physician, Dr. Kamran Hunt. I agree with the documented findings, disposition and treatment plan as described except to the extent set forth below: Patient reports 0/10 chest pain today. Denies shortness of breath. Heart exam reveals regular S1-S2. Cardiac catheterization report reveals distal diffuse RCA 80% stenosis not amenable to stenting. Recommendation to continue medical management. We will add isosorbide. Continue aspirin and Plavix and statin. Patient cannot tolerate beta aldair due to bradycardia. Patient was admitted to our service with a diagnosis of acute myocardial infarction. She recovered sooner than expected with medical management including heparin drip. Currently she is back to baseline, chest pain-free. She is medically stable for discharge home.
[2017-08-23 11:40] VITALS: BP 105/58
--- NOTE | 2017-08-23 14:17 | Invasive Diagnostic Lab Proc ---
Name: Crystal Valencia Date of Study: 08/22/2017 Date: 1935 Ht: 59.8in Medical Record#: [id number] Age: 81 Wt: 196.21lb Gender: Female BSA: 1.85 Order #: [id number] BMI: 38.52 Physicians Procedure Physician: Bryan Galvan DO Referring MD: Referring MD: Staff Name Position Time In Windy Mckay RT (R) Monitor 03:38 PM Johnny Gaminoi RT Scrub 03:38 PM Maggie Ruff RN Cable Armorer 03:38 PM Indications Indication Non-Stemi Procedures Performed Procedure L HRT ARTERY/VENTRICLE ANGIO Pre-Procedure Checklist Informed consent is complete signed and on chart. H&P is on chart. ID band is on and ID verified with patient. Patient NPO for procedure The procedure was described for the patient and questions were answered. ECG is on chart. Plan of Care Patient will tolerate the procedure without complications. Adequate level of comfort will be maintained. Hemodynamics will remain stable Patient will recover from procedure without complications. Respiratory function will be maintained. Cardiac rhythm will remain stable. Patient temperature will be maintained. Patient and/or family have verbalized understanding of the procedure. Patient Education Chief Complaint/Reason for Test: Cardiac Cath Developmental Category: Geriatric (65+ years) Developmentally Appropriate for Age: Yes Learning Barriers: None Education Needs: Procedure Education Method: Verbal Information Taught: Cardiac Cath Educational Evaluation: Able to repeat information Intravenous Access Time IV Size Location DC'd Fluid/Drip Rate Units RN 03:42 PM 20g 1 /" Patent On Arrival Lt Antecubital 0.9NaCl 25 ml/hr Maggie Ruff RN Allergies No Known Allergies Vital Signs Time BP (mmHg) HR (bpm) O2 Sat. RR (bpm) LOC 03:39 PM / % 5 = Fully awake and oriented or at pre-proc level 03:40 PM 186 / 95 124 94 % 22 03:43 PM 178 / 88 82 100 % 19 03:49 PM 158 / 92 79 97 % 20 03:54 PM 152 / 69 79 96 % 19 03:58 PM 162 / 76 76 98 % 26 04:03 PM 167 / 79 79 98 % 22 04:08 PM 169 / 85 77 98 % 43 Procedural Medications Time Medication Dose Units Method Given By 03:39 PM Oxygen 2 L/min nasal cannula Maggie Ruff RN 03:39 PM Versed 2 mg Intravenous Maggie Ruff RN 03:58 PM Lidocaine 2% 10 ml Subcutaneous Bryan Galvan DO ASA Classification: CLASS II- Mild systemic disease (i.e. well-controlled diabetes, hypertension, asthma, cigarette smoking) Annette Score Preprocedure Postprocedure Activity 2- Moves 4 extremities sustained head lift Activity 2- Moves 4 extremities sustained head lift Circulation 2- SBP +/= 20 points of pre-anesthetic level Circulation 2- SBP +/= 20 points of pre-anesthetic level Consciousness 2- Awake and alert oriented x 3 Consciousness 2- Awake and alert oriented x 3 O2 Saturation 2- Able to maintain O2 satruation of 92% on room air O2 Saturation 2- Able to maintain O2 satruation of 92% on room air Respiratory 2- Able to deep breathe and cough well Respiratory 2- Able to deep breathe and cough well Total Score 10 Total Score 10 Contrast Agent: Isovue Diagnostic Contrast: 55 ml Total Contrast: 55 ml Fluoro Dose: 185 mGy Procedure Log Time Note Enter By 03:37 PM CathStat 03:37 PM Vitals capture started with the following parameters, Patient=Adult, Interval=5 min, Initial Ziqjhzla=646 mmHg, Deflation Rate=5 mmHg, Cuff placed on Right Arm 03:38 PM Pt arrived to slab puller 2 at 15:38 twilson 03:38 PM Patient charges- Angio tray pack, Navilyst 3mm J, Pulse Oximetry and ACIST tubing and transducer twilson 03:38 PM Case Delayed no twilson 03:38 PM Physician arrived 15:38 twilson 03:38 PM Meet and greet completed twilson 03:38 PM Sign in performed according to hospital policy. twilson 03:38 PM Procedure start 15:38 twilson 03:38 PM ASA Class CLASS II- Mild systemic disease (i.e. well-controlled diabetes, hypertension, asthma, cigarette smoking) twilson 03:38 PM Windy Mckay RT (R) Position: Monitor Time in: 15:38 twilson 03:38 PM Melissa Gamino RT Position: Scrub Time in: 15:38 twilson 03:38 PM Maggie Ruff RN Position: Cable Armorer Time in: 15:38 twilson 03:39 PM Hair removed from procedure site in procedure lab using clippers. Bilateral groin prepped with Chloraprep by Windy Mckay (R), safety strap applied then patient was draped. Skin intact. : PM Time: 15:39 Oxygen on at 2 L/min per nasal cannula by Maggie Ruff RN PM Time: 15:39 Versed 2 mg Intravenous Given by Maggie Ruff RN ilson :39 PM Time: 15:39 Patient comfortable and pain free: Yes PM Time: 15:39LOC: 5 = Fully awake and oriented or at pre-proc level twilson 03:40 PM HR=485 bpm, DTQY=470/95 mmhg, SpO2=94.0 %, Resp=22 B/min 03:43 PM HR=82 bpm, ZFYE=628/88 mmhg, ReN9=188.0 %, Resp=19 B/min 03:46 PM Pressure channel 1 zeroed. 03:49 PM HR=79 bpm, KYBJ=243/92 mmhg, SpO2=97.0 %, Resp=20 B/min 03:54 PM HR=79 bpm, ZRQT=189/69 mmhg, SpO2=96.0 %, Resp=19 B/min 03:57 PM Time out performed according to hospital policy twilson 03:58 PM Time: 15:58 10 ml Lidocaine 2% to right groin Subcutaneous Given by Bryan Galvan DO twilson 03:58 PM HR=76 bpm, DBAC=372/76 mmhg, SpO2=98.0 %, Resp=26 B/min 03:59 PM Micro-Introducer Kit utilized for sheath placement twilson 04:00 PM Access obtained by percutaneous puncture. 6Fr 10cm Terumo [facility] sheath placed in right Femoral artery. [id number] twilson 04:00 PM 6Fr FR 4 catheter inserted over the wire [facility] tw 04:00 PM Catheter selectively placed in left ventricle twilson 04:00 PM Wire removed, intact. twilson 04:01 PM Recorded Pressure: LV, HR=76, Condition=Condition 1 (Left Ventricle) LV 160/85/152 04:01 PM Recorded Pressure: LV, Ao, HR=82, Condition=Condition 1 (Left Ventricle) LV 160/0/7, (Aorta) Ao 154/64/99 04:02 PM RCA angiography performed in multiple views. twilson 04:02 PM Wire reinserted and catheter removed. twilson 04:03 PM 6Fr FL 4 catheter inserted over the wire DNC twilson 04:03 PM Wire removed, intact. twilson 04:03 PM HR=79 bpm, LWTM=415/79 mmhg, SpO2=98.0 %, Resp=22 B/min 04:03 PM Recorded Pressure: Ao, HR=81, Condition=Condition 1 (Aorta) Ao 144/57/94 04:03 PM Recorded Pressure: Ao, HR=78, Condition=Condition 1 (Aorta) Ao 125/60/87 04:05 PM Wire reinserted and catheter and wire removed, intact. twilson 04:05 PM Bolus angiogram of right Femoral complete hand injection twilson 04:06 PM Coronary Dominance: right twilson 04:07 PM Procedure completed at 16:07 twilson 04:07 PM Sign out completed: Radiation Dose 184.91 mGy Fluoro Time: 1.5 Isovue 370 - 200ml contrast 55 ml given by Bryan Galvan DO. Complications: NoneCardiac Rehab Consult needed: NoConfirmed administered medications: Yes twilson 04:07 PM Isovue 370 - 200ml,1 Bottle(s) used. twilson 04:08 PM HR=77 bpm, KTDQ=776/85 mmhg, SpO2=98.0 %, Resp=43 B/min 04:09 PM Arterial sheath pulled, Mynx closure device used and was Successful S/N. twilson 04:10 PM Estimated Blood Loss: minimal twilson 04:11 PM Post ECG NSR twilson 04:11 PM Post Blood Pressure 169/85 twilson 04:11 PM 16:11 Post Pulses Bilateral DP & PT 2+ twilson 04:11 PM 16:11 Post Pulses Bilateral radial 2+ twilson 04:11 PM Information taught Cardiac Cath and Mynx twilson 04:11 PM Education needs Procedure, Plan of Care, and Responsibilities of Patient in Care twilson 04:12 PM Learning barriers :None twilson 04:12 PM Education Methods Verbal twilson 04:12 PM Education evaluation Able to repeat information twilson 04:12 PM Site status No bleeding/hematoma - Rt Groin as reported by Melissa Gamino RT at 16:12 twilson 04:12 PM Opsite applied twilson 04:15 PM Report given to RN Pt taken to 2A Room #26. 16:15 twilson 04:15 PM Delay to floor No twilson 04:15 PM Patient out of room: 16:15 twilson 04:16 PM Family placed in consult room. twilson Complications Complication None Hemodynamics Pressures Site Systolic/A Wave Diastolic/V Wave Mean LV 160 85 152 LV 160 0 7 AO 154 64 99 AO 144 57 94 AO 125 60 87 Post Procedure Information Blood Pressure: 169/85 mmHg Rhythm: NSR Post procedural instructions were given Closure Device Time Device Success/Fail 08/22/2017 4:06:00 PM MynxGrip Successful Site Checks Time Location Status Staff Sheath In? Note 04:12 PM Rt Groin No bleeding/hematoma Melissa Gamino RT Pulses Time Site Pre-Procedure Post-Procedure Note 08/22/2017 3:42:00 PM Bilateral DP & PT 2+ 08/22/2017 3:42:00 PM Bilateral radial 2+ 4:11:00 PM Bilateral DP & PT 2+ 4:11:00 PM Bilateral radial 2+ Updated by Windy Mckay RT (R) on 08/23/2017 2:09:27 PM electronically signed on 08/23/2017 2:11:18 PM with status of Final
--- NOTE | 2017-08-23 18:32 | Electrocardiograph Report ---
[address] [place] [address] Test Date: 2017-08-22 Pat Name: [place] Department: 112 Room: 2A26 Gender: F Traffic Officer: LIZY : 1935 Requested By: Eduard Briseno Order Number: [id number] Reading MD: David Rico DO Measurements Intervals [place] Rate: 71 P: 16 [place]: 243 QRS: 93 QRSD: 96 T: 51 QT: 424 QTc: 447 Interpretive Statements SINUS RHYTHM WITH FIRST DEGREE AV BLOCK WITH FREQUENT SUPRAVENTRICULAR PREMATURE COMPLEXES BORDERLINE RIGHT AXIS DEVIATION POSSIBLE LATERAL MYOCARDIAL INFARCTION, OF INDETERMINATE AGE Electronically Signed On 08-23-2017 18:31:00 EST by David Rico DO
== END 2017-08-23 11:33 | disposition home or self-care (01) | DRG 287 ==
LOC: 2ANU 18:54 → EMEROO 18:54 → 2ANU 22:41
PROVIDERS: ADMIT Family Medicine; ATTEND Internal Medicine